=== PATIENT | female | born 1990 | race Caucasian/White ===

== ENCOUNTER 2018-01-12 12:31 | Emergency (ER) | payer MEDICAID ==
[2018-01-12 12:31] VITALS: BMI 19.3
[2018-01-12 12:42] VITALS: TEMP 97.9; O2SAT 98
[2018-01-12] MEDS ORDERED: Sodium Chloride 0.9% 1,000 ML IV ONE (13:22)
--- NOTE | 2018-01-12 13:28 | C.PDOC ---
History Of Present Illness 27 year old female presents to the ED for evaluation of abdominal pain and chest pain which began yesterday. Patient states abdominal pain is worse around her epigastric region. Patient denies fever, chills, and has no other complaints at this time. Time Seen by Provider: 01/12/18 13:15 Chief Complaint (Nursing): Chest Pain History Per: Patient History/Exam Limitations: no limitations Current Symptoms Are (Timing): Still Present Quality: "Pain" Additional History Per: Patient Past Medical History Reviewed: Historical Data, Nursing Documentation, Vital Signs Vital Signs: Last Vital Signs Temp 97.9 F 01/12/18 12:41 Pulse 82 01/12/18 16:32 Resp 18 01/12/18 16:32 BP 125/73 01/12/18 16:32 Pulse Ox 98 01/12/18 17:52 - Medical History PMH: No Chronic Diseases Surgical History: Family History: States: Unknown Family Hx - Social History Hx Tobacco Use: No Hx Alcohol Use: No Hx Substance Use: No - Immunization History Hx Tetanus Toxoid Vaccination: No Hx Influenza Vaccination: No Hx Pneumococcal Vaccination: No Review Of Systems Constitutional: Negative for: Fever, Chills Cardiovascular: Positive for: Chest Pain Gastrointestinal: Positive for: Abdominal Pain Physical Exam - Physical Exam Appears: Non-toxic, No Acute Distress, Other (comfortable, texting on her phone ) Skin: Normal Color, Warm, Dry Head: Atraumatic, Normacephalic Eye(s): bilateral: Normal Inspection Oral Mucosa: Moist Neck: Supple Chest: Symmetrical, No Deformity, No Tenderness Cardiovascular: Rhythm Regular, No Murmur Respiratory: Normal Breath Sounds, No Rales, No Rhonchi, No Wheezing Gastrointestinal/Abdominal: Soft, Tenderness (epigastric ), No Guarding, No Rebound Extremity: Normal ROM, Capillary Refill (less than 2 seconds ) Neurological/Psych: Oriented x3, Normal Speech, Normal Cognition ED Course And Treatment - Laboratory Results Result Diagrams: 01/12/18 13:33 01/12/18 13:33 ECG: Interpreted By Me, Viewed By Me ECG Rhythm: Sinus Rhythm Interpretation Of ECG: Normal Sinus Rhythm at rate 80bpm. No ST/T wave changes. Rate From EC O2 Sat by Pulse Oximetry: 98 (on RA ) Pulse Ox Interpretation: Normal Medical Decision Making Medical Decision Making: atypical cp - consider gastritis pancreatitis uti -labs iamging pending Progress: Bloodwork, urinalysis, CXR, EKG ordered and reviewed. Protonix IVP and IV Fluids administered. Patient is PERC negative. pt reassesed persistent abd pain, ct added. ct later resulted neg. pain improved. abd soft no ttp, imaging cxr neg pt states feels better, no interval ekg changes. pt observed in nad. Disposition - Disposition Referrals: [facility] [Outside] [facility] [Outside] [facility] [Outside] Armen Thakkar MD [Staff Provider] - Disposition: HOME/ ROUTINE Disposition Time: 16:11 Condition: STABLE Additional Instructions: please follow up with your doctor. return to er with worsening symptoms or concerns. Prescriptions: Famotidine [Pepcid] 20 mg PO DAILY #20 tab Instructions: Acute Abdomen (Belly Pain) Forms: [employer] ([place]) - Clinical Impression Clinical Impression: Abdominal pain - Scribe Statement The provider has reviewed the documentation as recorded by the Scribe (Prabha Donnelly) Provider Attestation: All medical record entries made by the Scribe were at my direction and personally dictated by me. I have reviewed the chart and agree that the record accurately reflects my personal performance of the history, physical exam, medical decision making, and the department course for this patient. I have also personally directed, reviewed, and agree with the discharge instructions and disposition.
[2018-01-12 13:40] LABS: BASO % 0.5 % (0.0-2.0); EOS # 0.2 K/uL (0.0-0.7); EOS % 3.4 % (0.0-4.0); HEMOGLOBIN 13.5 g/dL (11.0-16.0); LYMPH # 1.8 K/uL (1.0-4.3); LYMPH % 34.3 % (20.0-40.0); MEAN CELL VOLUME 86.3 fL (81.0-99.0); MEAN CORPUSCULAR HEMOGLOBIN 29.3 pg (27.0-31.0); MEAN CORPUSCULAR HGB CONC 33.9 g/dL (33.0-37.0); MEAN PLATELET VOLUME 8.5 fL (7.2-11.7); MONO # 0.4 K/uL (0.0-0.8); MONO % 7.5 % (0.0-10.0); NEUT # 2.9 K/uL (1.8-7.0); NEUT % 54.3 % (50.0-75.0); NRBC % 0.3 % (0.0-2.0); RBC 4.6 Mil/uL (3.80-5.20); RED CELL DISTRIBUTION WIDTH 13.7 % (11.5-14.5); WHITE BLOOD COUNT 5.3 K/uL (4.8-10.8)
[2018-01-12 13:49] LABS: INR 1.1; PROTHROMBIN TIME 12.2 SECONDS (9.7-12.2)
[2018-01-12 13:59] LABS: ALB/GLOB RATIO 1.2 (1.0-2.1); ALBUMIN 4.1 g/dL (3.5-5.0); ALT/SGPT 13 U/L (9-52); AST/SGOT 24 U/L (14-36); BLOOD UREA NITROGEN 14 mg/dL (7-17); CALCIUM 9.2 mg/dl (8.6-10.4); GFR AFRICAN-AMERICAN > 60; GFR NON-AFRICAN AMERICAN > 60; LIPASE 59 U/L (23-300)
[2018-01-12 14:01] LABS: HCG,QUALITATIVE URINE NEGATIVE (NEGATIVE)
[2018-01-12 14:07] LABS: SQUAMOUS EPITHIAL 3 /hpf (0-5); URINE BILIRUBIN NEGATIVE (NEGATIVE); URINE BLOOD 1+ (NEGATIVE); URINE CLARITY Hazy (Clear); URINE COLOR Yellow (YELLOW); URINE GLUCOSE (UA) NORMAL (Normal); URINE LEUKOCYTE ESTERASE NEG Leu/uL (Negative); URINE PROTEIN NEGATIVE (NEGATIVE)
[2018-01-12] MEDS ORDERED: Iodixanol 320 MG/ML 100 ML BOTTLE IV ONE (14:48)
--- NOTE | 2018-01-12 16:08 | CT ---
PROCEDURE: CT Abdomen and Pelvis with contrast HISTORY: Epigastric and suprapubic pain COMPARISON: None. TECHNIQUE: CT scan of the abdomen and pelvis was performed after administration of intravenous contrast. Oral contrast was not administered. Coronal and sagittal reformatted images were obtained. Contrast dose: 100 mL Visipaque Radiation dose: Total exam DLP = 319.12 mGy-cm. This CT exam was performed using one or more of the following dose reduction techniques: Automated exposure control, adjustment of the mA and/or kV according to patient size, and/or use of iterative reconstruction technique. FINDINGS: LOWER THORAX: The lung bases are clear. LIVER: Normal in size with homogeneous enhancement. No gross lesion or ductal dilatation. GALLBLADDER AND BILE DUCTS: There are no calcified gallstones. PANCREAS: Normal in size with homogeneous enhancement. No gross lesion or ductal dilatation. SPLEEN: Normal in size and appearance. ADRENALS: No discrete nodule. KIDNEYS AND URETERS: Both kidneys are normal in size and there is homogeneous enhancement. There is few small nonobstructing stones in the left kidney, the largest in the interpolar region measures 3 mm. No hydronephrosis. No solid mass. VASCULATURE: Unremarkable. No aortic aneurysm. BOWEL: The small bowel loops are normal in caliber. There is large amount of stool in the sigmoid colon and rectum. No bowel dilatation or obstruction. APPENDIX: Normal appendix. PERITONEUM: No free fluid. No free air. LYMPH NODES: No enlarged lymph nodes. BLADDER: Grossly normal in appearance. REPRODUCTIVE: The uterus is normal in size. There is fluid in the endometrial canal. BONES: No acute fracture. Within normal limits for the patient's age. OTHER FINDINGS: None. IMPRESSION: No acute abdominal or pelvic abnormality. Nonobstructing stones in the left kidney, the largest in the interpolar region measures 3 mm. Constipation.
[2018-01-12 16:33] VITALS: BP 125/73; PULSE 82; RESP 18
--- NOTE | 2018-01-15 07:26 | CARD ---
APPROVED REPORT EKG Measurement Heart [id number] <Conclusion> Normal sinus rhythm Incomplete right bundle branch block Borderline ECG
== END 2018-01-12 16:35 | disposition home or self-care (01) ==
LOC: C.ER 12:31
DX: R10.13 Epigastric pain (principal)
CPT/HCPCS: 71046; 74177; 80053; 81001; 83690; 84484; 84703; 85025; 85610; 85730; 96361; 96374; 96375; 99284; C9113; J1885; J7040; Q9967

== ENCOUNTER 2018-01-14 23:43 | Emergency (ER) | payer MEDICAID ==
[2018-01-14 23:44] VITALS: BMI 19.3
[2018-01-14 23:57] VITALS: TEMP 97.6
--- NOTE | 2018-01-15 00:33 | C.PDOC ---
History Of Present Illness Patient presents to the ER with a complaint of nausea, vomiting, and not being able to tolerate PO. Patient was seen in the ER 2 days ago for similar complaints, she had negative blood work and a negative CT at the time. Patient is also complainin of a headache, states she did not take anything because taking motrin made her nauseous. Denies fever or chills. Time Seen by Provider: 01/15/18 00:32 Chief Complaint (Nursing): Chest Pain History Per: Patient History/Exam Limitations: no limitations Onset/Duration Of Symptoms: Days Current Symptoms Are (Timing): Still Present Severity: Moderate Pain Scale Rating Of: 4 Associated Symptoms: Nausea, Other (Vomiting) Modifying Factors: None Exacerbating Factors: None Alleviating Factors: None Recent travel outside of the [place]: No Past Medical History Reviewed: Historical Data, Nursing Documentation, Vital Signs Vital Signs: Last Vital Signs Temp 97.6 F 01/14/18 23:46 Pulse 76 01/15/18 01:34 Resp 20 01/15/18 01:34 BP 100/64 01/15/18 01:34 Pulse Ox 100 01/15/18 01:34 Surgical History: Family History: States: No Known Family Hx - Social History Hx Tobacco Use: No Hx Alcohol Use: No Hx Substance Use: No - Immunization History Hx Tetanus Toxoid Vaccination: No Hx Influenza Vaccination: No Hx Pneumococcal Vaccination: No Review Of Systems Constitutional: Negative for: Fever, Chills Cardiovascular: Negative for: Chest Pain Respiratory: Negative for: Shortness of Breath Gastrointestinal: Positive for: Nausea, Vomiting Physical Exam - Physical Exam Appears: Non-toxic Skin: Warm, Dry Head: Normacephalic Eye(s): bilateral: Normal Inspection Oral Mucosa: Moist Chest: Symmetrical, No Tenderness Cardiovascular: Rhythm Regular Respiratory: No Rales, No Rhonchi, No Wheezing Gastrointestinal/Abdominal: Soft, Tenderness (Mid epigastric), Distention ( mildly), No Guarding, No Rebound, Other (Tympanic to percussion) Extremity: Normal ROM Extremity: Bilateral: Atraumatic Neurological/Psych: Oriented x3, Normal Speech, Normal Cognition, Other (no nystagmus) Gait: Steady ED Course And Treatment - Laboratory Results Result Diagrams: 01/15/18 00:46 01/15/18 00:46 O2 Sat by Pulse Oximetry: 99 (Room air) Pulse Ox Interpretation: Normal Progress Note: EKG and blood work ordered. Pepcid, zofran, and IV fluids administered. Pt refuses CT head because she states that her insurance will not pay for it. Explained at length the need for the CT but pt is adamant about not getting it. Is aware of all the risks as I've explained to her, including d= the risk of and permanent disability, but pt still refuses Disposition Counseled Patient/Family Regarding: Studies Performed, Diagnosis, Need For Followup, Rx Given - Disposition Referrals: Ez Sutton MD [Staff Provider] - [facility] [Outside] [facility] [Outside] Disposition: HOME/ ROUTINE Disposition Time: 00:33 Condition: FAIR Additional Instructions: Please return if symptoms recur Prescriptions: Meclizine [Antivert] 25 mg PO TID #15 tab Ondansetron ODT [Zofran ODT] 1 odt PO BID PRN #6 odt PRN Reason: Nausea/Vomiting Instructions: Nausea and Vomiting, Adult, Vertigo (a Type of Dizziness) (DC) Forms: [employer] (Citizen Of [place]) - Clinical Impression Clinical Impression: Nausea & vomiting, Dizziness - Scribe Statement The provider has reviewed the documentation as recorded by the Scribe Nicolás Cruz All medical record entries made by the Scribe were at my direction and personally dictated by me. I have reviewed the chart and agree that the record accurately reflects my personal performance of the history, physical exam, medical decision making, and the department course for this patient. I have also personally directed, reviewed, and agree with the discharge instructions and disposition.
[2018-01-15] MEDS ORDERED: Sodium Chloride 0.9% 1,000 ML IV ONE (00:39)
[2018-01-15] MEDS ORDERED: Sodium Chloride 0.9% 1,000 ML ONE (00:50)
[2018-01-15 00:53] LABS: BASO # 0.1 K/uL (0.0-0.2); BASO % 0.7 % (0.0-2.0); EOS # 0.4 K/uL (0.0-0.7); EOS % 5.1 % (0.0-4.0); HEMOGLOBIN 13.4 g/dL (11.0-16.0); LYMPH # 2.9 K/uL (1.0-4.3); LYMPH % 37.4 % (20.0-40.0); MEAN CORPUSCULAR HEMOGLOBIN 28.8 pg (27.0-31.0); MEAN CORPUSCULAR HGB CONC 33.5 g/dL (33.0-37.0); MEAN PLATELET VOLUME 8.7 fL (7.2-11.7); MONO # 0.6 K/uL (0.0-0.8); MONO % 8.1 % (0.0-10.0); NEUT # 3.7 K/uL (1.8-7.0); NEUT % 48.7 % (50.0-75.0); RBC 4.67 Mil/uL (3.80-5.20); RED CELL DISTRIBUTION WIDTH 13.5 % (11.5-14.5); WHITE BLOOD COUNT 7.7 K/uL (4.8-10.8)
[2018-01-15 01:19] LABS: ALB/GLOB RATIO 1.3 (1.0-2.1); ALBUMIN 4.3 g/dL (3.5-5.0); ALT/SGPT 18 U/L (9-52); AST/SGOT 17 U/L (14-36); BLOOD UREA NITROGEN 13 mg/dL (7-17); CALCIUM 9.1 mg/dl (8.6-10.4); GFR AFRICAN-AMERICAN > 60; GFR NON-AFRICAN AMERICAN > 60; LIPASE 67 U/L (23-300)
[2018-01-15 01:20] VITALS: RESP 20
[2018-01-15 01:35] VITALS: BP 100/64; PULSE 76
[2018-01-15 02:05] VITALS: O2SAT 99
--- NOTE | 2018-01-18 21:08 | CARD ---
APPROVED REPORT EKG Measurement Heart [id number] <Conclusion> Normal sinus rhythm with sinus arrhythmia Possible Left atrial enlargement Low voltage QRS RSR' or QR pattern in V1 suggests right ventricular conduction delay Borderline ECG
== END 2018-01-15 02:16 | disposition home or self-care (01) ==
LOC: C.ER 23:43
DX: R11.2 Nausea with vomiting, unspecified (principal); R42 Dizziness and giddiness
CPT/HCPCS: 80053; 83690; 85025; 96361; 96374; 99285; J7040